=== PATIENT | female | born 1970 | race African-American/Black ===

== ENCOUNTER 2020-09-23 07:20 | Outpatient (RCR) | payer BC, SELFPAY ==
--- NOTE | 2020-09-23 08:27 | PTOPEVAL ---
Thank you for referring Jennifer Jain to [facility].? The patient is scheduled to be seen for therapy? 2x/week for 8 weeks. Please review, sign, date and return this plan of care [facility]. I agree with and certify that the following plan of care is medically necessary. Referring Physician Date Attending Provider: Aretha Ellis, Referring Provider: Aretha Ellis, *PT Outpatient Evaluation Start: 09/23/20 07:25 Freq: Status: Active Protocol: Document 09/23/20 07:27 ZARA (Rec: 09/23/20 08:25 CAP [id number]) Therapy Assessment Status Assessment Status Assessment Status Evaluation Outpatient Past Medical History Past Medical History Source of Past Medical History Patient,Recalled from Previous Visit, Confirmed with Patient /Family Neurological History Hx Neurological Disorders No Significant History Cardiovascular History Hx Cardiac Disorders No Significant History Respiratory History Hx Respiratory Disorders No Significant History Gastrointestinal History Hx Other Gastrointestinal Disorders Yes: obesity Genitourinary History Hx Genitourinary Disorders No Significant History Musculoskeletal History Hx Back Pain Yes Endocrine History Hx Endocrine Disorders No Significant History Evaluation Information Problem Diagnosis chronic back pain Onset 3 years Additional Evaluation Detail 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 Subjective Information She reports constant back pain Query Text:As Reported By Patient/ . She reports increased pain Family with standing, walking, lifting act. 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 She has difficulty sleeping due to pain. 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 Diagnostic Tests X-Rays For This Problem Yes: OA and mild DDD Previous Treatments Previous Treatments For This Problem no Pain Assessment Timing of Pain Assessment Timing of Pain Assessment Assessment Pain Scale Pain Scale Used Numeric (1 - 10) Self Report Pain Assessment Bilateral Lower Back Reported Pain Level 8 Pain Description Radiating,Soreness,Tightness
--- NOTE | 2020-09-28 08:30 | PCPTNOTE ---
Patient called & cancelled scheduled appointment this date due to not feeling well / being sick.
--- NOTE | 2020-10-02 14:54 | PCPTNOTE ---
Patient did not show up for scheduled appointment this date. Called and had to leave a message.
--- NOTE | 2020-10-06 07:54 | PCPTNOTE ---
Patient did not show up for scheduled appointment this date.Called due to no show for therapy visit. Left message that therapy services will be DC due to repeated No show/cancel.
--- NOTE | 2020-10-06 10:44 | PCPTNOTE ---
Admitting Provider: Attending Provider: Aretha Ellis, Patient:Jennifer Jain Date of :1970 Discharge Note Patient has not returned for any further treatments since initial evaluation on 09/23/2020, therefore she will be discharged at this time. Patient?s initial visit was on 09/23/2020 07:30 and she had a total of 1 visits with 3 no show/cancelled visits. The goals have been not met due to no follow up visits attended. Thank you for referring this patient to [facility]. Please review, sign, date and return this discharge summary MINH. I have been updated about the patient's current status and I agree with discharge from the above service at this time. Referring Physician Date
== END 2020-10-06 11:14 | disposition home or self-care (01) ==
LOC: ANHPT 07:20
PROVIDERS: PCP Family Medicine; Referring Provider Family Medicine; Visit Provider Family Medicine
DX: M54.5 Low back pain (principal)
CPT/HCPCS: 97110; 97162